=== PATIENT | female | born 1995 | race Caucasian/White ===

== ENCOUNTER 2018-09-06 09:26 | Outpatient (CLI) | payer OTHER ==
[~2018-09-06 09:26] MED LIST: Iopamidol 370 76% 100 ML VIAL ONE
--- NOTE | 2018-09-06 12:06 | CT ---
CT BRAIN WITH AND WITHOUT CONTRAST: HISTORY: Syncope. Collapse. TECHNIQUE: Pre and post contrast enhanced CT images of the brain obtained. FINDINGS: The brain is unremarkable. No evidence of intracranial masses, hemorrhages, strokes, or contusions s een. The ventricles are of normal size. The calvarium is unremarkable. IMPRESSION: Unremarkable pre and post contrast enhanced CT images of the brain. POS: AIYANA
== END 2018-09-06 09:27 | disposition home or self-care (01) ==
LOC: SCSCT 09:26
PROVIDERS: ATTEND Internal Medicine Cardiovascular Disease
DX: R55 Syncope and collapse (principal)
CPT/HCPCS: 70470